=== PATIENT | female | born 1985 | race Caucasian/White ===

== ENCOUNTER 2018-10-29 07:57 | Outpatient (RCR) | payer BC | END 2018-10-30 | LOC: PT 07:57 | PROVIDERS: ATTEND Orthopaedic Surgery | DX: S83.271D Complex tear of lateral meniscus, current injury, right knee, subsequent encounter (principal); M62.81 Muscle weakness (generalized) ==

== ENCOUNTER 2018-11-05 08:06 | Outpatient (RCR) | payer BC | END 2018-11-30 | LOC: PT 08:06 | PROVIDERS: ATTEND Orthopaedic Surgery | DX: S83.271D Complex tear of lateral meniscus, current injury, right knee, subsequent encounter (principal); M62.81 Muscle weakness (generalized) ==